=== PATIENT | male | born 1980 | race African-American/Black ===

== ENCOUNTER 2023-10-10 10:32 | Emergency (ER) | payer OTHER, SELFPAY ==
--- NOTE | ~2023-10-10 | XR_ITS ---
EXAMINATION: XR chest 2V DATE: 10/10/2023 11:10 INDICATION: Left-sided chest pain TECHNIQUE: PA and lateral views of the chest were obtained. COMPARISON: None FINDINGS: The lungs are clear with no focal airspace opacities, pulmonary edema, pleural effusion or pneumothor ax. The cardiomediastinal silhouette is normal. Mild upper thoracic dextrocurvature. IMPRESSION: 1. No acute cardiopulmonary disease. Reviewed, dictated and finalized at location L.
[2023-10-10 10:32] VITALS: BP 125/80; PULSE 94; RESP 13; TEMP 36.6; O2SAT 100
--- NOTE | 2023-10-10 10:39 | ECG_ITS ---
Measurements Intervals [place] Rate: 102 P: 72 MA: 141 QRS: 72 QRSD: 89 T: 61 QT: 329 QTc: 429 Interpretive Statements SINUS TACHYCARDIA BASELINE ARTIFACT- I, II, III, AVL BORDERLINE ECG NO PREVIOUS ECG AVAILABLE FOR COMPARISON Electronically Signed On 10-10-2023 12:45:23 CDT by Karthikeyan Arana D.O.
[2023-10-10 10:43] VITALS: PULSE 95
[2023-10-10] MEDS: KETOROLAC 30 MG/ML VIAL (*BKC) IV PUSH (10:50)
[2023-10-10 11:03] LABS: Basophils Absolute Auto 0.1 K/mm3 (0.0-0.1); Basophils Percent Auto 0.4 % (0.2-1.2); Eosinophils Absolute Auto 0.1 K/mm3 (0-0.3); Eosinophils Percent Auto 0.7 % (0-4.4); Hematocrit 43.2 % (42.0-52.0); Hemoglobin 13.9 g/dL (14.0-18.0); Immature Granulocyte Absolute 0.03 K/mm3 (0.00-0.031); Immature Granulocyte Percent A 0.3 % (0-0.5); Lymphocytes Percent Auto 14.2 % (18.3-44.2); Mean Corpuscular HGB Conc 32.2 g/dl (32-36); Mean Corpuscular Hemoglobin 29.6 pg (26-34); Mean Corpuscular Volume 92.1 fl (80-100); Mean Platelet Volume 10.1 fl (7.4-10.4); Monocytes Absolute Auto 0.4 K/mm3 (0.1-0.6); Monocytes Percent Auto 3.2 % (2.6-8.5); Neutrophils Absolute Auto 9.2 K/mm3 (1.3-6.7); Neutrophils Percent Auto 81.2 % (45.5-73.1); Platelet Count Result 295 k/mm3 (150-375); Red Blood Count 4.69 M/mm3 (4.6-6.20); Red Cell Distribution Width 13.3 % (11.5-14.5); White Blood Count 11.3 K/mm3 (4.5-10.0)
--- NOTE | 2023-10-10 11:10 | ED.GENADULT ---
HPI - General Adult General Chief complaint: Chest Pain Stated complaint: chest pain Time Seen by Provider: 10/10/23 10:35 History of Present Illness HPI narrative: Patient is a 43-year-old male who presents ER with chest pain. Left-sided lower rib cage. Sudden onset at 9:00 a.m.. Worse with cough/deep breath. No hemoptysis. No fevers or chills or sweats. No exertional dyspnea. He tried taking Tylenol and ibuprofen without improvement. Denies trauma. Pain is worse with direct palpation. Related Data Allergies Allergy/AdvReac Type Severity Reaction Status Date / Time No Known Allergies Allergy Verified 10/10/23 10:40 Review of Systems Review of Systems: All systems reviewed & are unremarkable except as noted in HPI and below Constitutional: Constitutional: Reports no additional constitutional complaints ENT: Reports system reviewed and no additional complaints, except as documented Cardiovascular: Cardiovascular: Reports chest pain, Denies rapid heart rate and Denies radiating jaw, neck or arm pain Respiratory: Respiratory: Reports no additional respiratory complaints Gastrointestinal: Gastrointestinal: Reports no additional gastrointestinal complaints Musculoskeletal: Musculoskeletal: Reports no additional musculoskeletal complaints [facility] Past Medical History Medical History (Updated 10/10/23 @ 15:32 by Juan Carlos Alexander MD) Healthy adult male Surgical History Surgical History (Updated 10/10/23 @ 11:12 by Juan Carlos Alexander MD) No history of previous surgery Social History Social History (Updated 10/10/23 @ 11:12 by Juan Carlos Alexander MD) Substance use type: marijuana Exam Narrative: GENERAL: Well-appearing, well-nourished, and in no acute distress. HEAD: Normocephalic, atraumatic. ENT: Mucous membranes moist. NECK: Supple. CHEST: Clear to auscultation. No respiratory distress. HEART: Regular rate and rhythm. Normal peripheral pulses. tender palpation left lateral chest wall lower aspect of the ribcage border near the midaxillary line. ABDOMEN: Soft, nontender, nondistended. EXTREMITIES: Normal range of motion. No edema. SKIN: Warm, dry, no rash. NEURO: Alert and oriented x3. PSYCH: Normal mood and affect. Course Course Emergency Course: Troponin negative x2. Toradol given for pain. Discharge home. Will give supportive medication. Vital Signs Vital signs: Vital Signs Temperature 97.8 F 10/10/23 10:32 Pulse Rate 94 10/10/23 10:32 Respiratory Rate 13 10/10/23 10:32 Blood Pressure 125/80 10/10/23 10:32 Pulse Oximetry 100 10/10/23 10:32 Oxygen Delivery Room Air 10/10/23 10:32 Temperature 97.8 F 10/10/23 10:32 Pulse Rate 83 10/10/23 15:04 Respiratory Rate 14 10/10/23 15:04 Blood Pressure 112/81 10/10/23 15:04 Pulse Oximetry 95 10/10/23 15:04 Oxygen Delivery Room Air 10/10/23 10:32 Medical Decision Making Vital Signs Vital Signs: Vital Signs Temperature 97.8 F 10/10/23 10:32 Pulse Rate 94 10/10/23 10:32 Respiratory Rate 13 10/10/23 10:32 Blood Pressure 125/80 10/10/23 10:32 Pulse Oximetry 100 10/10/23 10:32 Oxygen Delivery Room Air 10/10/23 10:32 Temperature 97.8 F 10/10/23 10:32 Pulse Rate 83 10/10/23 15:04 Respiratory Rate 14 10/10/23 15:04 Blood Pressure 112/81 10/10/23 15:04 Pulse Oximetry 95 10/10/23 15:04 Oxygen Delivery Room Air 10/10/23 10:32 Lab Data 10/10/23 10:52 10/10/23 10:52 Labs: Lab Results 10/10/23 10/10/23 Range/Units 10:52 13:45 WBC 11.3 H (4.5-10.0) K/mm3 RBC 4.69 (4.6-6.20) M/mm3 Hgb 13.9 L (14.0-18.0) g/dL Hct 43.2 (42.0-52.0) % MCV 92.1 (80-100) fl MCH 29.6 (26-34) pg MCHC 32.2 (32-36) g/dl RDW 13.3 (11.5-14.5) % Plt Count 295 (150-375) k/mm3 MPV 10.1 (7.4-10.4) fl Immature Gran % (Auto) 0.3 (0-0.5) % Neut % (Auto) 81.2 H (45.5-73.1) % Lymph % (Aut
[2023-10-10 11:15] LABS: INR 0.9; Partial Thromboplastin Time 27.2 Seconds (22.3-36.8); Prothrombin Time 12.8 Seconds (11.1-14.7)
[2023-10-10 11:16] LABS: D Dimer 0.41 ug/mL (<0.48)
[2023-10-10 11:19] LABS: Albumin Level 4.8 g/dL (3.5-5.1); Alkaline Phosphatase 64 U/L (38-126); Aspartate Amino Transferase 36 U/L (17-59); Bilirubin,Total 0.6 mg/dL (0.2-1.3); Blood Urea Nitrogen 7 mg/dL (9-20); Calcium 9.6 mg/dL (8.4-10.2); Carbon Dioxide 31 mmol/L (22-30); Estimated CRCL calculation 95 ml/min; Estimated Glomerular Filt Rate > 60; Glucose 81 mg/dL (65-110)
[2023-10-10 11:27] LABS: Troponin I < 0.012 ng/mL (0.000-0.034)
[2023-10-10 11:29] LABS: Alanine Aminotransferase 17 U/L (6-50); Anion Gap 5 mmol/L (8-16); Chloride 103 mmol/L (98-107); Potassium 3.9 mmol/L (3.4-5.0); Sodium 139 mmol/L (137-145)
[2023-10-10 12:26] VITALS: BP 128/90; PULSE 89; RESP 14; O2SAT 100
--- NOTE | 2023-10-10 13:41 | ECG_ITS ---
Measurements Intervals [place] Rate: 75 P: 62 ND: 147 QRS: 66 QRSD: 88 T: 45 QT: 354 QTc: 396 Interpretive Statements SINUS RHYTHM BASELINE ARTIFACT- I, II, III, AVR, AVL NORMAL ECG COMPARED TO ECG 10/10/2023 10:42:57 SINUS RHYTHM NOW PRESENT Electronically Signed On 10-10-2023 14:29:30 CDT by Karthikeyan Arana D.O.
[2023-10-10 13:47] VITALS: BP 118/80; PULSE 82; RESP 12; O2SAT 99
[2023-10-10 14:42] LABS: Troponin I < 0.012 ng/mL (0.000-0.034)
[2023-10-10 15:04] VITALS: BP 112/81; PULSE 83; RESP 14; O2SAT 95
== END 2023-10-10 15:58 | disposition home or self-care (01) ==
PROVIDERS: Emergency Provider Emergency Medicine; Referring Provider Emergency Medicine
DX: R07.89 Other chest pain (principal); R00.0 Tachycardia, unspecified
CPT/HCPCS: 36415; 71046; 80053; 84484; 85025; 85380; 85610; 85730; 93005; 96374; 99284; J1885